=== PATIENT | female | born 1935 | race Caucasian/White ===

== ENCOUNTER 2020-07-14 15:23 | Emergency (ER) | payer OTHER ==
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
[2020-07-14 19:05] VITALS: TEMP 98.9
[2020-07-14 19:07] VITALS: BP 140/70; O2SAT 94
--- OUTSIDE RECORDS SUMMARY | 2020-07-17 08:46 | XMS REPORT | Clinical Summary ---
:1935 Author Organization [facility] Address [address] [place] [address] Care Team Providers Name Role Phone Asked, No Pcp Primary Care Provider Unavailable Allergies No Known Active Allergies Medications Medication Sig Dispensed Refills Start Date End Date Status amLODIPine (NORVASC) 0 05/22/2019 Active 5 mg tablet DEXILANT 60 mg Take 1 capsule by 0 07/12/2019 Active capsule mouth daily. levothyroxine 0 05/16/2019 Activ e (SYNTHROID) 100 mcg tablet losartan-hydrochlorot Take 1 tablet by 0 05/22/2019 Active hiazide (HYZAAR) mouth daily. 100-25 mg per tablet meloxicam (MOBIC) 7.5 0 05/22/2019 Active mg tablet metoprolol tartrate 0 04/18/2019 Active (LOPRESSOR) 50 mg tablet TRAVATAN Z 0.004 % INT 1 GTT IN OU HS 3 07/03/2019 Active cholecalciferol, Take 2,000 Units 0 Active vitamin D3, (VITAMIN by mouth daily. D3) 2,000 unit capsule capsule gabapentin 1 cap PO qHS x 1 90 capsule 5 07/17/2019 Active (NEURONTIN) 100 mg week, then 1 cap capsule PO BID x 1 week, then 1 cap PO TID thereafter Active Problems Problem Noted Date Lumbar disc disease 07/17/2019 Lumbosacral root lesion Encounters Date Type Specialty Care Team Description 08/29/2019 Telephone Neurology Katya Catherine MA 08/02/2019 Office Visit Neurology Logan Garnica Lumbar disc disease (Primary Dx) 08/01/2019 Telephone Neurology Katya Catherine MA 07/17/2019 Hospital Encounter Radiology Logan Garnica Lumbar disc disease 07/17/2019 Office Visit Neurology Logan Garnica Lumbar disc disease (Primary Dx) after 07/16/2019 Medical History Medical History Date Comments Hypertension Social History Tobacco Use Types Packs/Day Years Used Date Never Smoker Smokeless Tobacco: Never Used Alcohol Use Drinks/Week oz/Week Comments Yes Sex Assigned at Date Recorded Not on file Last Filed Vital Signs Vital Sign Reading Time Taken Comments Blood Pressure 150/77 08/02/2019 3:53 PM CDT Pulse 56 08/02/2019 3:53 PM CDT Temperature - - Respiratory Rate - - Oxygen Saturation - - Inhaled Oxygen Concentration - - Weight 77.1 kg (170 lb) 08/02/2019 3:53 PM CDT Height 172.7 cm (5' 8") 08/02/2019 3:53 PM CDT Body Mass Index 25.85 08/02/2019 3:53 PM CDT Plan of Treatment Health Maintenance Due Date Last Done Comments SHINGLES VACCINES (#1) 1985 65+ PNEUMOCOCCAL VACCINE (1 of 1 - PPSV23) 2000 INFLUENZA VACCINE 05/10/2020 Procedures Procedure Name Priority Date/Time Associated Diagnosis Comme nts EMG Routine 07/26/2019 3:12 PM Lumbar disc disease R esults for this CDT procedure are i n the results section. MRI LUMBAR SPINE WO Routine 07/17/2019 7:07 PM Lumbar disc di sease Results for this CONTRAST CDT procedure are i n the results section. after 07/16/2019 Results EMG general request (07/26/2019 3:12 PM CDT) Narrative Performed At This result has an attachment that is no t available. Electromyogram and NCS Report [facility] [address] [place] [address]. [place] [address] Patient: Jane Wells Physician: Logan Garnica MD Age: 84 Test Date: 07/26/19 Sex: Female Height: 67 inches Weight: 170 lbs Ref. M.D.: Logan Garnica MD Date 1935 History/Comments: Temp: LLE:29.6 RLE:29.2 Motor Nerve Study Left Peroneal Nerve Rec Site: EDB Lat (ms) Dur (ms) Amp (mV) Area (mVms) Dist (mm) C.V. (m/s) Stim Site Ankle 6.9 5.7 1.6 4.9 70 Fib.Head 15.1 6.3 1.2 4.1 335 41.0 Motor Nerve Study Right Peroneal Nerve Rec Site: EDB Lat (ms) Dur (ms) Amp (mV) Area (mVms) Dist (mm) C.V. (m/s) Stim Site Ankle 5.8 7.3 3.1 10.2 70 Fib.Head 15.0 5.1 2.6 6.8 305 33.0 Motor Nerve Study Left Tibial Nerve Rec Site: AH Lat (ms) Dur (ms) Amp (mV) Area (mVms) Dist (mm) C.V. (m/s) Stim Site Ankle 4.9 7.5 3.8 13.7 90 Pop.Fos. 13.7 9.2 3.2 11.7 350 40.0 Motor Nerve Study Right Tibial Nerve Rec Site: AH Lat (ms) Dur (ms) Amp (mV) Area (mVms) Dist (mm) C.V. (m/s) Stim Site Ankle 4.9 7.7 1.6 5.3 90 Pop.Fos. 14.3 9.2 1.6 7.3 380 40.4 Sensory Nerve Study Left Sural Nerve Rec Site: Ankle Pk Lat (ms) Amp (uV) Stim Site mid calf NR Sensory Nerve Study Right Sural Nerve Rec Site: Ankle Pk Lat (ms) Amp (uV) Stim Site mid calf NR Sensory Nerve Study Left Superperon Nerve Rec Site: Ankle Pk Lat (ms) Amp (uV) Stim Site Lower leg NR Sensory Nerve Study Right [place]on Nerve Rec Site: Ankle Pk Lat (ms) Amp (uV) Stim Site Lower leg 4.5 6.0 F-Wave Study Left Peroneal Nerve Rec Site: EDB Latency Stim Site: Ankle ms F wave 49.00 F-Wave Study Right Peroneal Nerve Rec Site: EDB Latency Stim Site: Ankle ms F wave 57.50 F-Wave Study Left Tibial Nerve Rec Site: AH Latency Stim Site: Ankle ms F wave 56.50 F-Wave Study Right Tibial Nerve Rec Site: AH Latency Stim Site: Ankle ms F wave 59.83 H Reflex Study Left Tibial Nerve Rec Site: Soleus Latency Stim Site: Pop.Fos. ms H wave 35.67 H Reflex Study Right Tibial Nerve Rec Site: [place] Latency Stim Site: Pop.Fos. ms H wave 36.50 EMG Study Name Ins Act Fibs PSW Fascics Polyph MU Amp MU Dur Config Pattern Recruit L. Vastus Lat. norm none none none inc 1+ inc 1+ nor m poly norm -2 L. Vastus Med. norm none none none inc 1+ inc 1+ nor m poly norm -2 L. Tibialis Ant. Norm inc 2+ none none inc1+ inc 1+ norm poly norm -2 L. Gastroc.Med.H. norm none none none inc 1+ norm norm poly norm -2 L. Abd.Dig.Q. norm none none none none norm norm nor m norm -2 R. Vastus Lat. norm none none none inc 1+ norm norm poly norm -1 R. Vastus Med. norm none none none inc 1+ norm norm poly norm -2 R. Tibialis Ant. norm none none none inc 1+ inc 1+ n orm poly norm -2 R. Gastroc.Med.H. norm none none none inc 1+ norm norm poly norm -2 R. Ext.Dig.Br. 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 MD Jason Spaulding Department of Neurology [facility] [place] [address] Office: [phone] Left Peroneal Nerve Right Peroneal Nerve Left Tibial Nerve Right Tibial Nerve Left Sural Nerve Right Sural Nerve Left Superperon Nerve Right Super[place]on Nerve Left Peroneal Nerve Right Peroneal Nerve Left Tibial Nerve Right Tibial Nerve Left Tibial Nerve Right Tibial Nerve MRI Lumbar Spine Wo Contrast (07/17/2019 7:07 PM CDT) Specimen Narrative Performed At This result has an attachment that is no t available. EXAMINATION: MRI LUMBAR SPINE WO CONTRAST HM RADIANT CLINICAL HISTORY: M51.9 Unspecified th oracic thoracolumbar and lumbosacral intervertebral disc disorder, DJD COMPARISON: None FINDINGS: Noncontrast MRI of the lumbar spine is inter preted. The lowest fully formed disc space is designated L5-S1 . The conus terminates in a normal position and is joellen l in signal intensity. Mild Modic type I endplate edema is noted at L3-4, L4- 5, and L5-S1. L1-2: Prominent disc degenerative change s. Moderate dorsal endplate spurring. Moderate right and mild left facet arthrosis. Ligament of flavum hypertrophy. Moderate canal stenosis with crowding of the c auda equina nerve roots. Moderate right foraminal stenosis with potential contact on the exiting right L 1 nerve root. L2-3: Ankylosis. Mild right foraminal narrowing. L3-4: Moderate disc degenerative changes . Mild dorsal endplate spurring. Moderate disc bulge. Moderate bilateral facet arthrosis. Right ligamentum flavum hypertrophy. Prominent right lateral recess sten osis with contact on the traversing right L4 nerve root. Moderate central zone canal stenos is. [id number] bilateral foraminal stenosis. L4-5: Moderate disc degenerative changes . Moderate disc bulge. Superimposed small right subarticular/foraminal zone disc extrusion with slight superior migration. Prominent bilateral facet arthrosis. Li gament of flavum hypertrophy. Severe canal stenosis with constriction of the cauda equina ne rve roots. Moderate to severe left foraminal stenosis with contact of exiting left L4 nerve root. Moderate right foraminal stenosis with potential contact on the exiting right L4 nerve root. L5-S1: Mild disc degenerative changes. S mall central zone disc protrusion. Mild disc bulge. Prominent left and mild right facet arthrosis. Moderate left lateral recess stenosis with contact on the trave rsing left S1 nerve root. Moderate left foraminal stenosis with potential contact on the exiting left L5 nerve root. There is deconditioning of the posterior paraspinous m usculature. IMPRESSION: Moderate to prominent lumbar spondylosis. Multifactorial severe canal stenosis at L4-5. Prominent right lateral recess stenosis at L3-4 with contact on the traversing right L4 nerve root. Moderate left lateral recess stenosis on the left at L4-5 with contact on the traversing left S1 nerve root. Moderate to severe left foraminal stenos is at L4-5 with contact on the exiting left L4 nerve root. Additional areas of foraminal narrowing as described above. [facility]-[id number] Procedure Note Hm Interface, Radiology Results - 07/17/2019 7:44 PM CDT EXAMINATION: MRI LUMBAR SPINE WO CONTRAST CLINICAL HISTORY: M51.9 Unspecified tho racic thoracolumbar and lumbosacral intervertebral disc disorder, DJD COMPARISON: None FINDINGS: Noncontrast MRI of the lumbar spine is interpreted. The lowest fully formed disc space is de signated L5-S1. The conus terminates in a normal positio n and is normal in signal intensity. Mild Modic type I endplate edema is note d at L3-4, L4-5, and L5-S1. L1-2: Prominent disc degenerative change s. Moderate dorsal endplate spurring. Moderate right and mild left facet arthrosis. Ligament of flavum hypertrophy. Moderate canal stenosis with crowding of the cauda equina nerve roots. Moderate right foraminal stenosis with potential contact on the e xiting right L1 nerve root. L2-3: Ankylosis. Mild right foraminal na rrowing. L3-4: Moderate disc degenerative changes . Mild dorsal endplate spurring. Moderate disc bulge. Moderate bilateral facet arthrosis. Right ligamentum flavum hypertrophy. Prominent right lateral recess stenosis with contact on the traversing right L4 nerve root. Moderate central zone canal stenos is. [id number] bilateral foraminal stenosis. L4-5: Moderate disc degenerative changes . Moderate disc bulge. Superimposed small right subarticular/foraminal zone disc extrusion with slight superior migration. Prominent bilateral facet arthrosis. Ligament of flavum hypertrophy. Severe canal sten osis with constriction of the cauda equina ne rve roots. Moderate to severe left foraminal stenosis with contact of exiting left L4 nerve root. Moderate right foraminal stenosis with potential contact on the exiting right L4 nerve root. L5-S1: Mild disc degenerative changes. S mall central zone disc protrusion. Mild disc bulge. Prominent left and mild right facet arthrosis. Moderate left lateral recess stenosis with contact on the traversing left S1 nerve root. Moderate left foraminal stenosis with potential contact on the e xiting left L5 nerve root. There is deconditioning of the posterior paraspinous musculature. IMPRESSION: Moderate to prominent lumbar spondylosis . Multifactorial severe canal stenosis at L4-5. Prominent right lateral recess stenosis at L3-4 with contact on the traversing right L4 nerve root. Moderate left lateral recess stenosis on the left at L4-5 with contact on the traversing left S1 nerve root. Moderate to severe left foraminal stenos is at L4-5 with contact on the exiting left L4 nerve root. Additional areas of foraminal narrowing as described above. [facility]-[id number] Performing Organization Address City/State/ZIP Code Phon e Number [facility]ISH[facility] [address] [place] [address] after 07/16/2019 Insurance Payer Benefit Plan / Subscriber ID Effective Dates Phone Addre ss Type Group MEDICARE MEDICARE PART A [id number] 2000-[place] , [place] Medicare AND B nt [employer] [id number] 2018-[employer] michelle [employer] Advance Directives For more information, please contact: [phone] Type Date Recorded Patient Student Services Coordinator Explanati on Advance Directives, Living Will and Medical Power of Purchasing Administrative Assistant
== END 2020-07-14 17:42 | disposition home or self-care (01) ==
LOC: ER 15:23
DX: S43.401A Unspecified sprain of right shoulder joint, initial encounter (principal); V49.40XA Driver injured in collision with unspecified motor vehicles in traffic accident, initial encounter; I10 Essential (primary) hypertension
CPT/HCPCS: 70450; 71045; 72125; 99283

== ENCOUNTER 2023-03-18 17:30 | Observation (INO) | payer OTHER ==
--- OUTSIDE RECORDS SUMMARY | 2023-03-18 17:40 | XMS REPORT | Continuity of Care Document ---
:1935 Author Organization [facility] t Address [address] [place] [address] [place] [id number] Care Team Providers Name Role Phone RODERICK ESTRADA Primary Care Physician Unavailable RAFAEL MONTES Attending Clinician Unavailable EMILY WATSON Attending Clinician Unavailable EMILY WATSON Attending Clinician Unavailable Alejandro Saravia MD Attending Clinician ALEJANDRO SARAVIA Attending Clinician Unavailable Doctor Unassigned, [place] Attending Clinician Unavailable ALEJANDRO SARAVIA Admitting Clinician Unavailable Payers Payer Name Policy Type Policy Number Effective Date Expiration Date [facility] [id number] 2022 CLASSIC NO PREMIUM 00:00:00 HMO Problems Condition Condition Condition Status Onset Resolution Last Treating Co mments Source Name Details Category Date Date Treatment Clinician Date 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 0-08 st disease disease 00:00: Hospita 00 l Lumbosacra Lumbosacra Disease Active M ethodi l root l root st lesion lesion Hospita l Allergies, Adverse Reactions, Alerts Allergy Allergy Status Severity Reaction(s) Onset Inactive Treating Comm ents Source Name Type Date Date Clinician NO KNOWN Drug Active Univers ALLERGIE Class ity of [facility] [place] Social History Social Habit Start Date Stop Date Quantity Comments Source [facility] Exposure to 2022-12-06 2022-12-16 Not sure [facility]-CoV-2 (event) 00:00:00 10:37:00 [facility] [place] Tobacco use and 2022-11-18 2022-11-18 Smokeless Universit y of exposure 00:00:00 00:00:00 tobacco non-user [facility] dical Branch Alcohol intake 2019-08-02 2019-08-02 Current drinker [facility] 00:00:00 00:00:00 of alcohol Hospital (finding) History of Social 2019-07-17 2019-07-[address] function 00:00:00 00:00:00 Hospital Sex Assigned At [birth year] Jew 00:00:00 00:00:00 Hospital Smoking Status Start Date Stop Date Source Never smoked tobacco [facility] Medications Ordered Filled Start Stop Current Ordering Indication Dosage Frequency Signature Comments Components Source Medication Medication Date Date Medication? Clinician (SIG) Name Name famotidine Yes 40mg Take 40 mg U nivers 40 mg 2-09 by mouth ity of tablet 13:47: in the [place] [address] morning. Medical Branch famotidine Yes 40mg Take 40 mg U nivers 40 mg 2-09 by mouth ity of tablet 13:47: in the [place] [address] morning. Medical Branch famotidine Yes 40mg Take 40 mg U nivers 40 mg 2-09 by mouth ity of tablet 13:47: in the [place] [address] morning. Medical Branch famotidine Yes 40mg Take 40 mg U nivers 40 mg 2-09 by mouth ity of tablet 13:47: in the [place] [address] morning. Medical Branch famotidine Yes 40mg Take 40 mg U nivers 40 mg 2-09 by mouth ity of tablet 13:47: in the [place] [address] morning. Medical Branch metoprolol Yes metoprolol U nivers tartrate 50 2-09 tartrate ity of mg tablet 13:46: 50 mg [place] 16 tablet Medical Branch losartan-hy Yes losartan Un sukhi drochloroth 2-09 100 ity of iazide 13:46: mg-hydroch [place] 100-12.5 mg 16 lorothiazi Me dical per tablet de 12.5 mg Bra nch tablet levothyroxi Yes Synthroid U nivers ne 2-09 112 mcg ity of (SYNTHROID) 13:46[place] 112 [place]cg 16 Medical tablet Branch travoprost Yes travoprost U nivers 0.004 % 2-09 0.004 % ity of ophthalmic 13:46: [place] solution 16 Medical [place] metoprolol Yes metoprolol U nivers tartrate 50 2-09 tartrate ity of mg tablet 13:46: 50 mg [place] 16 tablet [facility] Yes losartan Un sukhi drochloroth 2-09 100 ity of iazide 13:46: mg-hydroch [place] 100-12.5 mg 16 lorothiazi Me dical per tablet de 12.5 mg Bra nch tablet levothyroxi Yes Synthroid U nivers ne 2- 112 mcg ity of (SYNTHROID) 13:46: [place] 112 mcg 16 Medical [facility] travoprost Yes travoprost U nivers 0.004 % 2-09 0.004 % ity of ophthalmic 13:46: [place] drops [place] 16 [facility] metoprolol Yes metoprolol U nivers tartrate 50 2-09 tartrate ity of mg tablet 13:46: 50 mg [place] 16 tablet [facility] Yes losartan Un sukhi drochloroth 2- 100 ity of iazide 13:46: mg-hydroch [place] 100-12.5 mg 16 lorothiazi Me dical per tablet de 12.5 mg Bra nch tablet levothyroxi Yes Synthroid U nivers ne - 112 mcg ity of (SYNTHROID) 13:46: [place] 112 mcg 16 Medical tablet [place] travoprost Yes travoprost U nivers 0.004 % 2-09 0.004 % ity of ophthalmic 13:46: [place] 16 [place] metoprolol Yes metoprolol U nivers tartrate 50 2-09 tartrate ity of mg tablet 13:46: 50 mg [place] 16 tablet [facility] losartan Un sukhi drochloroth 2-09 100 ity of iazide 13:46: mg-hydroch [place] 100-12.5 mg 16 lorothiazi Me dical per tablet de 12.5 mg Bra nch tablet levothyroxi Yes Synthroid U nivers ne 2-09 112 mcg ity of (SYNTHROID) 13:46: [place] 112 mcg 16 Medical tablet Branch travoprost Yes travoprost U nivers 0.004 % 2-09 0.004 % ity of ophthalmic 13:46: [place] drops [place] solution 16 [facility] metoprolol Yes metoprolol U nivers tartrate 50 2-09 tartrate ity of mg tablet 13:46: 50 mg [place] 16 tablet Medical Branch losartan-hy Yes losartan Un sukhi drochloroth 2 100 ity of iazide 13:46: mg-hydroch [place] 100-12.5 mg 16 lorothiazi Me dical per tablet de 12.5 mg Bra nch tablet levothyroxi Yes Synthroid U nivers ne 2-09 112 mcg ity of (SYNTHROID) 13:46: [place] 112 mcg 16 Medical tablet Branch travoprost Yes travoprost U nivers 0.004 % 2-09 0.004 % ity of ophthalmic 13:46: eye drops [place] solution 16 [facility] amLODIPine Yes 10mg Take 10 mg U nivers 10 mg 1-24 by mouth ity of tablet 00:00: every [place] 00 morning. Medical Branch SERTraline 0 Yes 50mg Take 50 mg U nivers 50 mg 1-24 by mouth ity of tablet 00:00: every [place] 00 morning. Medical Branch amLODIPine 0 Yes 10mg Take 10 mg U nivers 10 mg 1-24 by mouth ity of tablet 00:00: every [place] 00 morning. Medical Branch SERTraline 2022-0 Yes 50mg Take 50 mg U nivers 50 mg 1-24 by mouth ity of tablet 00:00: every [place] 00 morning. Medical Branch amLODIPine 0 Yes 10mg Take 10 mg U nivers 10 mg 1-24 by mouth ity of tablet 00:00: every [place] 00 morning. Medical Branch SERTraline 0 Yes 50mg Take 50 mg U nivers 50 mg 1-24 by mouth ity of tablet 00:00: every [place] 00 morning. Medical Branch amLODIPine 2022-0 Yes 10mg Take 10 mg U nivers 10 mg 1-24 by mouth ity of tablet 00:00: every [place] 00 morning. Medical Branch SERTraline Yes 50mg Take 50 mg U nivers 50 mg 1-24 by mouth ity of tablet 00:00: every [place] 00 morning. Medical Branch amLODIPine Yes 10mg Take 10 mg U nivers 10 mg 1-24 by mouth ity of tablet 00:00: every [place] 00 morning. Medical Branch SERTraline 0 Yes 50mg Take 50 mg U nivers 50 mg 1-24 by mouth ity of tablet 00:00: every [place] 00 morning. Medical Branch cholecalcif 2018-10 Yes 2000U QD Take 2,000 Methodi brandon, 0-[address] vitamin D3, 15:42: mouth Hospi ta (VITAMIN 32 daily. l D3) 2,000 unit capsule capsule cholecalcif 2018-10 Yes 2000U QD Take 2,000 Methodi brandon, 0-[address] vitamin D3, 15:42: mouth Hospi ta (VITAMIN 32 daily. l D3) 2,000 unit capsule capsule cholecalcif 2018-10 Yes 2000U QD Take 2,000 Methodi brandon, 0-[address] vitamin D3, 15:42: mouth Hospi ta (VITAMIN 32 daily. l D3) 2,000 unit capsule capsule cholecalcif 2018-10 Yes 2000U QD Take 2,000 Methodi brandon, 0-[address] vitamin D3, 15:42: mouth Hospi ta (VITAMIN 32 daily. l D3) 2,000 unit capsule capsule cholecalcif 2018-10 Yes 2000U QD Take 2,000 Methodi brandon, 0-[address] vitamin D3, 15:42: mouth Hospi ta (VITAMIN 32 daily. l D3) 2,000 unit capsule capsule cholecalcif 2018-10 Yes 2000U QD Take 2,000 Methodi brandon, 0-[address] vitamin D3, 15:42: mouth Hospi ta (VITAMIN 32 daily. l D3) 2,000 unit capsule capsule gabapentin 2018-10 Yes 1 cap PO Met hodi (NEURONTIN) 0-[address] 100 mg 00:00: week, then Hospi ta capsule 00 1 cap PO l BID x 1 week, then 1 cap PO TID thereafter gabapentin 2018-10 Yes 1 cap PO Met hodi (NEURONTIN) 0-[address] 100 mg 00:00: week, then Hospi ta capsule 00 1 cap PO l BID x 1 week, then 1 cap PO TID thereafter gabapentin 2018-10 Yes 1 cap PO Met hodi (NEURONTIN) 0-[address] 100 mg 00:00: week, then Hospi ta capsule 00 1 cap PO l BID x 1 week, then 1 cap PO TID thereafter gabapentin 2018-10 Yes 1 cap PO Met hodi (NEURONTIN) 0-[address] 100 mg 00:00: week, then Hospi ta capsule 00 1 cap PO l BID x 1 week, then 1 cap PO TID thereafter gabapentin 2018-10 Yes 1 cap PO Met hodi (NEURONTIN) 0-[address] 100 mg 00:00: week, then Hospi ta capsule 00 1 cap PO l BID x 1 week, then 1 cap PO TID thereafter gabapentin 2018-10 Yes 1 cap PO Met hodi (NEURONTIN) 0-[address] 100 mg 00:00: week, then Hospi ta capsule 00 1 cap PO l BID x 1 week, then 1 cap PO TID thereafter DEXILANT 60 2018-10 Yes 1{capsu QD Take 1 M ethodi mg capsule 0-03 le} capsule by st 00:00: mouth Hospita 00 daily. l DEXILANT 60 2018-10 Yes 1{capsu QD Take 1 M ethodi mg capsule 0-03 le} capsule by st 00:00: mouth Hospita 00 daily. l DEXILANT 60 2018-10 Yes 1{capsu QD Take 1 M ethodi mg capsule 0-03 le} capsule by st 00:00: mouth Hospita 00 daily. l DEXILANT 60 2018-10 Yes 1{capsu QD Take 1 M ethodi mg capsule 0-03 le} capsule by st 00:00: mouth Hospita 00 daily. l DEXILANT 60 2018-10 Yes 1{capsu QD Take 1 M ethodi mg capsule 0-03 le} capsule by st 00:00: mouth Hospita 00 daily. l DEXILANT 60 2018-10 Yes 1{capsu QD Take 1 M ethodi mg capsule 0-03 le} capsule by st 00:00: mouth Hospita 00 daily. l GABBY Valentin 2018- Yes INT 1 GTT Me thodi 0.004 % 9-[address] 00:00: Hospita 00 l TRAVATAN Z 2019-0 Yes INT 1 GTT Me thodi 0.004 % 9-[address] 00:00: Hospita 00 l TRAVATAN Z 2019-0 Yes INT 1 GTT Me thodi 0.004 % 9-[address] 00:00: Hospita 00 l TRAVATAN Z 2019-0 Yes INT 1 GTT Me thodi 0.004 % 9-[address] 00:00: Hospita 00 l TRAVATAN Z 2019-0 Yes INT 1 GTT Me thodi 0.004 % 9-[address] 00:00: Hospita 00 l TRAVATAN Z 2019-0 Yes INT 1 GTT Me thodi 0.004 % 9-[address] 00:00: Hospita 00 l amLODIPine 2019-0 Yes Methodi (NORVASC) 5 8-13 st mg tablet 00:00: Hospita 00 l losartan-hy 2019-0 Yes 1{tbl} QD Take 1 Me thodi drochloroth 8-[address] iazide 00:00: mouth Hospita (HYZAAR) 00 daily. l 100-25 mg per tablet meloxicam 2018-0 Yes Methodi (MOBIC) 7.5 8-13 st mg tablet 00:00: Hospita 00 l losartan-hy 2019-0 Yes 1{tbl} QD Take 1 Me thodi drochloroth 8-[address] iazide 00:00: mouth Hospita (HYZAAR) 00 daily. l 100-25 mg per tablet meloxicam 2019-0 Yes Methodi (MOBIC) 7.5 8-13 st mg tablet 00:00: Hospita 00 l amLODIPine 2019-0 Yes Methodi (NORVASC) 5 8-13 st mg tablet 00:00: Hospita 00 l losartan-hy 2019-0 Yes 1{tbl} QD Take 1 Me thodi drochloroth 8-[address] iazide 00:00: mouth Hospita (HYZAAR) 00 daily. l 100-25 mg per tablet meloxicam 2019-0 Yes Methodi (MOBIC) 7.5 8-13 st mg tablet 00:00: Hospita 00 l amLODIPine 2019-0 Yes Methodi (NORVASC) 5 8-13 st mg tablet 00:00: Hospita 00 l losartan-hy 2019-0 Yes 1{tbl} QD Take 1 Me thodi drochloroth 8-[address] iazide 00:00: mouth Hospita (HYZAAR) 00 daily. l 100-25 mg per tablet meloxicam 2019-0 Yes Methodi (MOBIC) 7.5 8-13 st mg tablet 00:00: Hospita 00 l amLODIPine 2019-0 Yes Methodi (NORVASC) 5 8-13 st mg tablet 00:00: Hospita 00 l losartan-hy 2019-0 Yes 1{tbl} QD Take 1 Me thodi drochloroth 8-[address] iazide 00:00: mouth Hospita (HYZAAR) 00 daily. l 100-25 mg per tablet meloxicam 2019-0 Yes Methodi (MOBIC) 7.5 8-13 st mg tablet 00:00: Hospita 00 l amLODIPine 2019-0 Yes Methodi (NORVASC) 5 8-13 st mg tablet 00:00: Hospita 00 l losartan-hy 2019-0 Yes 1{tbl} QD Take 1 Me thodi drochloroth 8-[address] iazide 00:00: mouth Hospita (HYZAAR) 00 daily. l 100-25 mg per tablet meloxicam 2019-0 Yes Methodi (MOBIC) 7.5 8-13 st mg tablet 00:00: Hospita 00 l amLODIPine 2019-0 Yes Methodi (NORVASC) 5 8-13 st mg tablet 00:00: Hospita 00 l levothyroxi 2019-0 Yes Method i ne 05-16 st (SYNTHROID) 00:00: Hospit a 100 mcg 00 l tablet levothyroxi 2019-0 Yes Method i ne 05-16 st (SYNTHROID) 00:00: Hospit a 100 mcg 00 l tablet levothyroxi 2019-0 Yes Method i ne 05-16 st (SYNTHROID) 00:00: Hospit a 100 mcg 00 l tablet levothyroxi 2019-0 Yes Method i ne 05-16 st (SYNTHROID) 00:00: Hospit a 100 mcg 00 l tablet levothyroxi 2019-0 Yes Method i ne 05-16 (SYNTHROID) 00:00: Hospit a 100 mcg 00 l tablet levothyroxi 2019-0 Yes Method i ne 8-07 st (SYNTHROID) 00:00: Hospit a 100 mcg 00 l tablet metoprolol 2019-0 Yes Methodi tartrate 7-10 st (LOPRESSOR) 00:00: Hospit a 50 mg 00 l tablet metoprolol 2019-0 Yes Methodi tartrate 7-10 st (LOPRESSOR) 00:00: Hospit a 50 mg 00 l tablet metoprolol 2019-0 Yes Methodi tartrate 7-10 st (LOPRESSOR) 00:00: Hospit a 50 mg 00 l tablet metoprolol 2019-0 Yes Methodi tartrate 7-10 st (LOPRESSOR) 00:00: Hospit a 50 mg 00 l tablet metoprolol 2019-0 Yes Methodi tartrate 7-10 st (LOPRESSOR) 00:00: Hospit a 50 mg 00 l tablet metoprolol 2019-0 Yes Methodi tartrate 7-10 st (LOPRESSOR) 00:00: Hospit a 50 mg 00 l tablet Vital Signs Vital Name Observation Time Observation Value Comments Source Systolic blood 2022-11-18 19:57:00 123 mm[Hg] Univer sity [facility] Diastolic blood 2022-11-18 19:57:00 90 mm[Hg] [facility] 2022-11-18 19:57:00 99 /min [facility] Body temperature 2022-11-18 19:54:00 37.22 [facility] height 2022-11-18 19:54:00 175.3 cm [facility] Body weight 2022-11-18 19:54:00 70.761 kg [facility] BMI 2022-11-18 19:54:00 23.04 kg/m2 [facility] Oxygen saturation in 2022-11-18 19:54:00 93 /min [facility] blood by [facility] Pulse oximetry Branch Procedures Procedure Date / Time Performed Performing Clinician Byron VILLANUEVA PATIENT 2022-11-18 20:14:18 Doctor Unassigned, No Univer [facility] FINANCIAL POLICY Name Medical [place] Plan of Care Planned Activity Planned Date Details Comments Source Future Scheduled 2023-03-16 COVID-19 VACCINE (#1) [facility] Test 13:27:24 [code = COVID-19 VACCINE (#1)] Future Scheduled 2023-03-16 SHINGLES VACCINES (1 [facility] 13:27:24 of 2) [code = SHINGLES VACCINES (1 of 2)] Future Scheduled 2023-03-16 65+ [facility]UMOCOCCAL [facility] Test 13:27:24 VACCINE (1 - PCV) [code = 65+ PNEUMOCOCCAL VACCINE (1 - PCV)] Future Scheduled 2023-03-16 INFLUENZA VACCINE Method ist Hospital Test 13:27:24 [code = INFLUENZA VACCINE] Future Scheduled 2023-03-16 COVID[facility]19 [facility] Test 13:27:24 [code = COVID-19 VACCINE (#1)] Future Scheduled 2023-03-16 SHINGLES VACCINES (1 [facility] Test 13:27:24 of 2) [code = SHINGLES VACCINES (1 of 2)] Future Scheduled 2023-03-16 65+ PNEUMOCOCCAL [facility] Hospital Test 13:27:24 VACCINE (1 - PCV) [code = 65+ PNEUMOCOCCAL VACCINE (1 - PCV)] Future Scheduled 2023-03-16 INFLUENZA VACCINE Method ist Hospital Test 13:27:24 [code = INFLUENZA VACCINE] Future Scheduled 2023-03-16 COVID-19 VACCINE (#1) [facility] Test 13:27:24 [code = COVID-19 VACCINE (#1)] Future Scheduled 2023-03-16 SHINGLES VACCINES (1 [facility] Test 13:27:24 of 2) [code = SHINGLES VACCINES (1 of 2)] Future Scheduled 2023-03-16 65+ P[facility]UMOCOCCAL [facility] Test 13:27:24 VACCINE (1 - PCV) [code = 65+ PNEUMOCOCCAL VACCINE (1 - PCV)] Future Scheduled 2023-03-16 INFLUENZA VACCINE Method ist Hospital Test 13:27:24 [code = INFLUENZA VACCINE] Future Scheduled 2023-01-20 COVID-19 VACCINE (#1) [facility] Test 14:25:48 [code = COVID-19 VACCINE (#1)] Future Scheduled 2023-01-20 SHINGLES VACCINES (1 [facility] Test 14:25:48 of 2) [code = SHINGLES VACCINES (1 of 2)] Future Scheduled 2023-01-20 65+ PNEUMOCOCCAL [facility] Hospital Test 14:25:48 VACCINE (1 - PCV) [code = 65+ PNEUMOCOCCAL VACCINE (1 - PCV)] Future Scheduled 2023-01-20 INFLUENZA VACCINE Method [facility] Test 14:25:48 [code = INFLUENZA VACCINE] Future Scheduled 2023-01-13 COVID-19 VACCINE (#1) [facility] Test 02:06:31 [code = COVID-19 VACCINE (#1)] Future Scheduled 2023-01-13 SHINGLES VACCINES (1 Met [facility] Test 02:06:31 of 2) [code = SHINGLES VACCINES (1 of 2)] Future Scheduled 2023-01-13 65+ PNEUMOCOCCAL Methodi Hospital Test 02:06:31 VACCINE (1 - PCV) [code = 65+ PNEUMOCOCCAL VACCINE (1 - PCV)] Future Scheduled 2023-01-13 INFLUENZA VACCINE Method [facility] Test 02:06:31 [code = INFLUENZA VACCINE] Future Scheduled 2022-09-22 COVID-19 VACCINE (#1) [facility] Test 22:47:08 [code = COVID-19 VACCINE (#1)] Future Scheduled 2022-09-22 SHINGLES VACCINES (1 Met [facility] Test 22:47:08 of 2) [code = SHINGLES VACCINES (1 of 2)] Future Scheduled 2022-09-22 65+ [facility]AL [facility] 22:47:08 VACCINE (1 - PCV) [code = 65+ PNEUMOCOCCAL VACCINE (1 - PCV)] Future Scheduled 2022-09-22 INFLUENZA VACCINE Method [facility] Test 22:47:08 [code = INFLUENZA VACCINE] Encounters Start End Encounter Admission Attending Care Care Encounter Source Date/Time Date/Time Type Type Clinicians Facility Department ID 2023-03-16 2023-03-16 Outpatient BRIT PEREA [id number] Nam 13:27:21 13:27:21 [id number] F Maurilio 2023-03-14 2023-03-14 Outpatient R EMILY WATSON [facility] [id number] Univers 12:00:00 12:00:00 EMILY WATSON [facility] 2023-01-20 2023-01-20 Outpatient BRIT PEREA [id number] Nam 14:25:45 14:25:45 [id number] F Maurilio 2023-01-19 2023-01-19 Outpatient [facility] [id number] Nam 16:36:28 16:36:28 [id number] F Maurilio 2022-12-17 2022-12-17 Telephone [facility] [id number] Univers 00:00:00 00:00:00 Alejandro CHENG [id number] [place]y [id number] [id number] [place] dical NAL [address] [place] [address] 2022-12-16 2022-12-16 Outpatient R [facility] [id number] Univers 10:38:07 23:59:00 ALEJANDRO marrufo o [facility] 2022-12-16 2022-12-16 Outpatient R [facility] [id number] Univers 11:00:00 11:00:00 ALEJANDRO marrufo o [facility] 2022-12-09 2022-12-09 [facility] [id number] Univers 00:00:00 00:00:00 Casjose PROSPER [id number] [place] [facility] [id number] [id number] [address] 2022-11-18 2022-11-18 Outpatient R [facility] [id number] Univers 13:40:00 16:17:28 ALEJANDRO marrufo o [facility] 2022-11-18 2022-11-18 Office [facility] [id number] Univers 13:40:00 14:00:00 Visit Casjose ARZOLAVASQUEZ [id number] [id number] [id number] [place] dical NAL [address] [place] [address] 2022-11-18 2022-11-18 Orders Doctor FRANCO [id number] Univers 00:00:00 00:00:00 Only Unassigned, CONCHITA [id number] ity of [place] [facility] [id number] Lauro as [id number] [address] 2022-11-16 2022-11-16 Outpatient [facility] [id number] Nam 13:20:17 13:20:17 [id number] Juan Thorpe 2022-11-02 2022-11-02 Outpatient [facility] [id number] Nam 10:35:49 10:35:49 [id number] Juan Thorpe Results Test Description Test Time Test Comments Results Result Comments Source TSH + FREE T4 PROFILE 2023-01-21 06:53:16 Test Item Value Reference Range Interpretation Comme nts TSH, THIRD GENERATION (test 0.979 UIU/ML 0.400-4.100 code = 2821) FREE T4 (THYROXINE) (test 1.33 NG/DL 0.80-1.90 * CPL has important code = 2823) pathology staff changes effective 12/08. New pathology staff will provide uninterrupted, excellent patient care an d clinical consultation. S ee URL: [email or web address] UNLESS OTHERW ISE INDICATED, ALL TESTING PER FORMED AT CLINICAL PATHOL [employer], [facility]. [address] [place] [address] LABORATORY DIRE CTOR: Coby IBARRA NIYA NUMBER [id number] [facility]. [id number] THYROID II PROFILE (TU,T4,FTI,TSH)2022-11-17 05:51:41 Test Item Value Reference Range Interpretation Comments T-UPTAKE (test code = 30.2 % 24.3-39.0 2817) THYROX. BIND. CAPAC. 1.1 0.8-1.3 (test code = 16530) T4 (THYROXINE) (test 6.9 UG/DL 4.5-10.5 code = 2819) CORRECTED T4 (FTI) 6.3 UG/DL 4.2-11.6 (test code = 2820) TSH, THIRD GENERATION 20.800 UIU/ML 0.400-4.100 H CPL has (test code = 2821) important pathology staff changes effective 12/08/2022. New pathology staff will provide uninterrupted, excellent patie nt care and clinic al consultation. S ee URL: [email or web address]. UN LESS OTHERWISE INDICATED, ALL TESTING PERFORM ED AT [facility], [place]. [address] [place] [address] CLIA : [id number], CAP : [id number] VITAMIN [id number] 11:55:32 Test Item Value Reference Range Interpretation Comments VITAMIN B-6 31 nmol/L 20-125 This test was d eveloped and its (test code = performance 4956) characteristics determined by [facility] ([facility]). It has n ot beencleared or approved by the U.S. Food and Drug Admini stration (FDA).The FDA h as determined that such clear ance or approval is notnecessary . This test is used for clinic al purposes and should not teresita garded as investigational or for research. [facility] i s qualified toperform high complexity testing under t he Clinical LaboratoryImpro vement Amendments (CLI A). TESTING PERFORMED AT [facility] . [address], [address], [address] [place], [place] [address] CLIA NO: [id number] UNLE SS OTHERWISE INDICATED, ALL TESTING PERFORMED [facility], [place]. [address] [place] [address] 4 PHOTOGRAPHY TEACHER: LUIS ENRIQUE TIAN M.D. CLIA JULIAN Pierce [id number] CAP ACCREDITATION N O. [id number] HEMOGLOBIN [id number] 08:45:59 Test Item Value Reference Range Interpretation Comments HEMOGLOBIN A1c (test code = 26140) 5.6 % 4.2-5.6 CBC W/AUTO DIFF WITH [id number] 08:28:26 Test Item Value Reference Range Interpretation Comments WBC (test code = 5.5 K/UL 3.5-11.0 1001) RBC (test code = 4.98 M/UL 3.80-5.40 1002) HEMOGLOBIN (test code 15.3 G/DL 11.5-15.5 = 1003) HEMATOCRIT (test code 46.5 % 34.0-45.0 H = 1004) MCV (test code = 93.4 fL 80.0-99.0 1005) MCH (test code = 30.7 PG 25.0-33.0 1006) MCHC (test code = 32.9 G/DL 31.0-36.0 1007) RDW (test code = 13.4 % 11.5-15.0 1038) NEUTROPHILS (test 61.8 % code = 1008) LYMPHOCYTES (test 26.8 % code = 1010) MONOCYTES (test code 8.6 % = 1011) EOSINOPHILS (test 1.7 % code = 1012) BASOPHILS (test code 0.7 % = 1013) IMMATURE GRANULOCYTES 0.4 % (test code = 1036) NUCLEATED RBCS (test 0.0 /100 WBC'S See_Comment [Aut omated code = 1065) message] The sy stem which generated this result transmitted reference range : 0.0. The refere nce range was not u sed to interpret th is result as normal/abnormal . PLATELET COUNT (test 192 K/UL 130-400 code = 1015) ABSOLUTE NEUTROPHILS 3.37 K/UL 1.50-7.50 (test code = 1066) ABSOLUTE LYMPHOCYTES 1.46 K/UL 1.00-4.00 (test code = 1067) ABSOLUTE MONOCYTES 0.47 K/UL 0.20-1.00 (test code = 1068) ABSOLUTE EOSINOPHILS 0.09 K/UL 0.00-0.50 (test code = 1040) ABSOLUTE BASOPHILS 0.04 K/UL 0.00-0.20 (test code = 1069) ABS IMMATURE 0.02 K/UL 0.00-0.10 GRANULOCYTES (test code = 1020) ABS NUCLEATED RBCS 0.00 K/UL 0.00-0.11 (test code = 75511) VITAMIN D, 25 [id number] 06:50:23 Test Item Value Reference Range Interpretation Comments VITAMIN D, 25 31 NG/ML SEE BELOW EFFECTIVE 10/18/2022, [place] (test code PLEASE NOTE NE W METHODOLOGY = 4958) IS [facility] EMILUMINESCENCE BINDING ASSAY. NOTE: 25-HYDROXYVITAM IN D ASSAY INCLUDES 25-HYD ROXYVITAMIN D2 AND D3. I NTERPRETIVE RANGES PED IATRIC (<17 YEARS) . . . . . . . . . . . NG/ML 20-100ADU LT: INSUFFICIENT . . . . . . . . . . . . . . NG/ML <20 SUBOP TIMAL . . . . . . . . . . . . . . . NG/ML 20-29 OPTIMAL . . . . . . . . . . . . . . . . . NG/ML 30-100 TSH, THIRD [id number] 06:18:28 Test Item Value Reference Range Interpretation Comments TSH, THIRD GENERATION (test 48.000 UIU/ML 0.400-4.100 H code = 2821) VITAMIN [id number] 06:18:28 Test Item Value Reference Range Interpretation Comments VITAMIN B-12 (test code = 2840) 332 PG/ML 200-950 COMPREHENSIVE METABOLIC [id number] 03:59:30 Test Item Value Reference Range Interpretation Comments GLUCOSE (test code = 105 MG/DL 70-99 H 2216) BUN (test code = 15 MG/DL 8-23 2207) CREATININE (test 1.01 MG/DL 0.60-1.30 code = 2214) eGFR (2020 CKD-EPI) 54 ML/MIN/1.73 >60 L The N KF-ASN (test code = 70404) Taskforc e recommends use of Cystatin C to confirm eGFR inadults at [facility] k for CKD. [facility]PL offers eGFR with Cystatin C-Creatinineusi ng the 2020 CKD-EP I eGFR_creat-cyst at equation (order code 3057) toincreas e the accuracy of estimated GFR. For more informatio n, contactyour [facility] ount executive or se e announcement [email or web address] CALC BUN/CREAT (test 15 RATIO 6-28 code = 2235) SODIUM (test code = 142 MEQ/L 513-403 0997) POTASSIUM (test code 4.6 MEQ/L 3.5-5.4 = 2227) CHLORIDE (test code 106 MEQ/L 95-107 = 221) CARBON DIOXIDE (test 26 MEQ/L 19-31 code = 2206) CALCIUM (test code = 10.5 MG/DL 8.5-10.5 2208) PROTEIN, TOTAL (test 6.6 G/DL 6.1-8.3 code = 222) ALBUMIN (test code = 4.2 G/DL 3.5-5.2 2200) CALC GLOBULIN (test 2.4 G/DL 1.9-3.7 code = 2240) CALC A/G RATIO (test 1.8 RATIO 1.0-2.6 code = 2234) BILIRUBIN, TOTAL 0.8 MG/DL See_Comment [Automated message] (test code = 220) The syste m which generated this result transmit gilbert reference range : <=1.2. The refe rence range was not u sed to interpret th is result as normal/abnormal . ALKALINE PHOSPHATASE 69 U/L 40-142 (test code = 2203) AST (test code = 12 U/L 9-40 2217) ALT (test code = 9 U/L 5-40 2218) LIPID [id number] 03:59:30 Test Item Value Reference Range Interpretation Comments CHOLESTEROL (test 209 MG/DL <200 H code = 2210) TRIGLYCERIDES (test 74 MG/DL <150 code = 2232) HDL CHOLESTEROL (test 76 MG/DL >39 code = 2220) CALC LDL CHOL (test 116 MG/DL <100 H NOTE: C ALCULATED LDL code = 2237) IS BASED ON ALIA-PALACIO METHOD WHICHINCLUDES ADJUSTABLE TRIGLYCERIDE:VL DL CHOLESTEROL RAT IO.THIS FACTOR VARIES B Y MEASURED TRIGLY CERIDE AND NON-HDLCHOL ESTEROL CONCENTRATIONS WITH INCREASED CALCU LATED LDL SEENIN HIGH ER TRIGLYCERIDE OR LOWER NON-HDL SPECIME NS. FOR MOREINFORMATION , SEE CLIENT ANNOUNCE MENT AT [email or web address] RATIO LDL/HDL 1.53 RATIO <3.22 (test code = 2237) VITAMIN [id number] 09:23:21 Test Item Value Reference Range Interpretation Comments VITAMIN B-12 (test code = 2840) 321 PG/ML 200-950 RENAL FUNCTION [id number] 06:08:32 Test Item Value Reference Range Interpretation Comments GLUCOSE (test code = 2217) 94 MG/DL 70-99 BUN (test code = 220) 24 MG/DL 8-23 H CREATININE (test code = 2214) 0.95 MG/DL 0.60-1.30 eGFR (2020 CKD-EPI) (test code 58 ML/MIN/1.73 >60 L = ) CALC BUN/CREAT (test code = 25 RATIO 6-2234) SODIUM (test code = 223) 145 MEQ/L 133-146 POTASSIUM (test code = 2228) 4.0 MEQ/L 3.5-5.4 CHLORIDE (test code = 2215) 105 MEQ/L 95-107 CARBON DIOXIDE (test code = 27 MEQ/L 2205) CALCIUM (test code = 9) 10.1 MG/DL 8.5-10.5 PHOSPHORUS (test code = 2227) 3.8 MG/DL 2.5-4.5 ALBUMIN (test code = 2201) 4.2 G/DL 3.5-5.2 VITAMIN D, 25 [id number] 06:00:33 Test Item Value Reference Range Interpretation Comments VITAMIN D, 25 OH 21 NG/ML SEE BELOW L NOTE: 25-H YDROXYVITAMIN D (test code = 4958) ASSAY INC LUDES 25-HYDROXYVITAM IN D2 AND D3. METHODOLOGY IS CHEMILUMINESCEN T IMMUNOASSAY. INTERPRETIVE RA NGES PEDIATRIC (<17 YEARS) . . . . . . . . . . . NG/ML 20-100ADULT: IN SUFFICIENT . . . . . . . . . . . . . . NG/ML <20 SUBOP TIMAL . . . . . . . . . . . . . . . NG/ML 20-29 OPT IMAL . . . . . . . . . . . . . . . . . NG/ML 30-100 UN LESS OTHERWISE INDIC ATED, ALL TESTING PERFORM ED ATCLINICAL PATH OLOGY LABORATORIES, [facility]. [address] [place] [id number] LABORATORY DIRE CTOR: Kulwinder FLYNN CLIA NUMBER [id number] CAP ACCREDITATION N O. [id number] CBC W/AUTO DIFF WITH [id number] 05:58:01 Test Item Value Reference Range Interpretation Comments WBC (test code = 6.0 K/UL 3.5-11.0 1001) RBC (test code = 4.68 M/UL 3.80-5.40 1002) HEMOGLOBIN (test code 14.4 G/DL 11.5-15.5 = 1003) HEMATOCRIT (test code 43.6 % 34.0-45.0 = 1004) MCV (test code = 93.2 fL 80.0-99.0 1005) MCH (test code = 30.8 PG 25.0-33.0 1006) MCHC (test code = 33.0 G/DL 31.0-36.0 1007) RDW (test code = 13.7 % 11.5-15.0 1038) NEUTROPHILS (test 68.9 % code = 1008) LYMPHOCYTES (test 21.5 % code = 1010) MONOCYTES (test code 7.6 % = 1011) EOSINOPHILS (test 1.0 % code = 1012) BASOPHILS (test code 0.7 % = 1013) IMMATURE GRANULOCYTES 0.3 % (test code = 1036) NUCLEATED RBCS (test 0.0 /100 WBC'S See_Comment [Aut omated code = 1065) message] The sy stem which generated this result transmitted reference range : 0.0. The refere nce range was not u sed to interpret th is result as normal/abnormal . PLATELET COUNT (test 210 K/UL 130-400 code = 1015) ABSOLUTE NEUTROPHILS 4.16 K/UL 1.50-7.50 (test code = 1066) ABSOLUTE LYMPHOCYTES 1.30 K/UL 1.00-4.00 (test code = 1067) ABSOLUTE MONOCYTES 0.46 K/UL 0.20-1.00 (test code = 1068) ABSOLUTE EOSINOPHILS 0.06 K/UL 0.00-0.50 (test code = 1040) ABSOLUTE BASOPHILS 0.04 K/UL 0.00-0.20 (test code = 1069) ABS IMMATURE 0.02 K/UL 0.00-0.10 GRANULOCYTES (test code = 1020) ABS NUCLEATED RBCS 0.00 K/UL 0.00-0.11 (test code = 58952)
[2023-03-18 18:20] LABS: Hematocrit 43.5 % (36.0-45.0); Lymphocytes % 18.3 % (15.3-44.8); MCV 94.1 fL (80-100); MPV 10.4 fL (7.6-11.3); RBC Red Blood Cell Count 4.63 M/uL (3.86-4.86)
[2023-03-18 18:32] LABS: Protime INR 1.01
[2023-03-18] MEDS ORDERED: ACETAMINOPHEN 325 MG TABLET ONE (18:48)
--- NOTE | 2023-03-18 19:04 | RAD REPORT ---
EXAM DESCRIPTION: CT - Head C Spine Mpr Wo Con - 03/18/2023 6:38 pm CLINICAL HISTORY: Syncope. Head and neck injury status post fall. Head and neck pain COMPARISON: 2019 TECHNIQUE: Computed axial tomography of the head and cervical spine was obtained. Sagittal and coronal reconstruction was performed. All CT scans are performed using dose optimization technique as appropriate and may include automated exposure control or mA/KV adjustment according to patient size. FINDINGS: An intracranial bleed is not seen. The ventricles are normal in caliber. Moderate low-density within periventricular, deep and subcortical white matter likely ischemic change s secondary to small vessel disease An extra-axial fluid collection is not noted. Fluid within the visualized sinuses and mastoids is not seen A cervical fracture is not visualized. No dislocation is noted. Large osteophyte C3-4 results in moderate central spinal stenosis Mild chronic anterior subluxation C2 on C3 and C4 on C5 IMPRESSION: No acute intracranial abnormality is seen. A cervical fracture is not visualized. If the patient continues to have symptoms to suggest intracranial /spinal cord pathology then MRI wou ld be recommended
--- NOTE | 2023-03-18 19:09 | RAD REPORT ---
EXAM DESCRIPTION: Gabriele Single View03/18/2023 6:26 pm CLINICAL HISTORY: Syncope COMPARISON: 2019 FINDINGS: The lungs appear clear of acute infiltrate. The heart is moderately enlarged. A hiatal he rnia is suspected IMPRESSION: No acute abnormalities displayed
--- NOTE | 2023-03-18 19:16 | EDPHYS ---
Physician Documentation [facility] Name: Meera Welsl Age: 87 yrs Sex: Female : 1935 Arrival Date: 03/18/2023 Time: 17:30 Bed 3 Private MD: ED Physician Clement Ramey HPI: 03/18 17:37 This 87 yrs old Female presents to ER via Unassigned with complaints of syncope. ms3 17:37 87-year-old female with past medical history of hypertension and hypothyroidism ms3 presents via [facility] after syncopal episode at [facility]. EMS states patient was unresponsive for 1 minute. Patient's vital signs stable during transport. EMS notes patient was diaphoretic and pale on their arrival. Patient denies chest pain, shortness of breath, nausea, vomiting. Patient states she was waiting in line to check out at [facility] when she began to fade out and syncopized and fell.. Historical: - Allergies: 18:09 No Known Allergies; cm10 - PMHx: 17:50 Hypertension; Hypothyroidism; cm10 - Immunization history:: Adult Immunizations up to date. - Social history:: Smoking status: Patient denies any tobacco usage or history of. - Coronavirus screen:: The patient has NOT traveled to [place] in the past 14 days. ROS: 17:37 Constitutional: Negative for fever, and chills. Neck: Negative for injury, pain, and ms3 swelling. 17:37 Cardiovascular: Negative for chest pain, and palpitations. Respiratory: Negative for shortness of breath, cough, wheezing, and pleuritic chest pain, MS/Extremity: Negative for injury and deformity, Skin: Negative for injury, rash, and discoloration. 17:37 Cardiovascular: 17:37 Neuro: Positive for syncope. 17:37 All other systems are negative. Exam: 17:37 Constitutional: This is a well developed, well nourished patient who is awake, alert, ms3 and in no acute distress. Head/Face: Normocephalic, atraumatic. Neck: Trachea midline, no cervical lymphadenopathy. Supple, full range of motion without nuchal rigidity, or vertebral point tenderness. No Meningismus. Chest/axilla: Normal chest wall appearance and motion. Nontender with no deformity. Cardiovascular: Regular rate and rhythm with a normal S1 and S2. No gallops, murmurs, or rubs. Normal PMI, no JVD. No pulse deficits. Respiratory: Lungs have equal breath sounds bilaterally, clear to auscultation and percussion. No rales, rhonchi or wheezes noted. No increased work of breathing, no retractions or nasal flaring. Abdomen/GI: Soft, non-tender, with normal bowel sounds. No distension or tympany. No guarding or rebound. No evidence of tenderness throughout. Skin: Warm, dry with normal turgor. Normal color with no rashes, no lesions, and no evidence of cellulitis. MS/ Extremity: Pulses equal, no cyanosis. Neurovascular intact. Full, normal range of motion. 18:53 ECG was reviewed by the Attending Physician. ms3 Vital Signs: 18:00 BP 133 / 84; Pulse 62; Resp 18; Temp 98; Pulse Ox 100% ; Pain 3/10; ll1 19:15 BP 155 / 110; Pulse 85; Resp 16; Pulse Ox 96% on R/A; ll3 20:45 BP 135 / 97; Pulse 60; Resp 16; Pulse Ox 95% on R/A; ll3 21:41 BP 123 / 93; Pulse 79; Resp 18 S; Pulse Ox 98% on R/A; as6 18:00 Pain Scale: Adult ll1 MDM: 17:36 Patient medically screened. ms3 17:37 Differential Diagnosis: cardiac arrhythmia, idiopathic syncope, vasovagal episode, MS. ms3 20:46 Data reviewed: vital signs, nurses notes, and as a result, I will admit patient. ms3 Consideration of Admission/Observation Patient was admitted/placed on observation. Management of patient was discussed with the following: Hospitalist: LUISA Butterfield. Independent interpretation of the following test(s) in the Emergency Department nurse monitoring: rate is 62 beats/min, Rhythm is normal sinus rhythm, regular, with no ectopy, Interpretation: normal rate, normal rhythm. Historians other than the Patient: EMS: [facility]. Counseling: I had a detailed discussion with the patient and/or guardian regarding: the historical points, exam findings, and any diagnostic results supporting the discharge/admit diagnosis, lab results, radiology results, the need for further work-up and treatment in the hospital. ED course: Discussed with patient necessity for observation. Patient understands agrees with plan. All questions were answered. 03/18 17:37 Order name: Basic Metabolic Panel; Complete Time: 19:20 ms3 03/18 17:37 Order name: CBC with Diff; Complete Time: 18:29 ms3 03/18 17:37 Order name: Hepatic Function; Complete Time: 19:20 ms3 03/18 17:37 Order name: Magnesium; Complete Time: 19:20 ms3 03/18 17:37 Order name: Protime (+inr); Complete Time: 18:55 ms3 03/18 17:37 Order name: Ptt, Activated; Complete Time: 18:55 ms3 03/18 17:37 Order name: Troponin High Sensitivity; Complete Time: 19:20 ms3 03/18 17:37 Order name: Urinalysis w/ reflexes ms3 03/18 17:37 Order name: CT Head C Spine; Complete Time: 19:12 ms3 03/18 17:37 Order name: Chest Single View XRAY; Complete Time: 19:12 ms3 03/18 17:37 Order name: EKG; Complete Time: 17:38 ms3 03/18 17:37 Order name: Cardiac monitoring; Complete Time: 18:13 ms3 03/18 17:37 Order name: EKG - Nurse/Tech; Complete Time: 18:13 ms3 03/18 17:37 Order name: IV Saline Lock; Complete Time: 18:03 ms3 03/18 17:37 Order name: Labs collected and sent; Complete Time: 18:03 ms3 03/18 17:37 Order name: NPO; Complete Time: 18:03 ms3 03/18 17:37 Order name: O2 Per Protocol; Complete Time: 18:03 ms3 03/18 17:37 Order name: O2 Sat Monitoring; Complete Time: 18:03 ms3 03/18 18:21 Order name: Labs - recollect needed: recollect the chemistries hemolyzed; Complete eb Time: 18:51 EC:53 Rate is 62 beats/min. Rhythm is irregular. Left axis deviation noted. IN interval is ms3 normal. QRS interval is normal. Clinical impression: Sinus arrythmia. Interpreted by me. Reviewed by me. Administered Medications: 18:51 Drug: Acetaminophen PO 650 mg Route: PO; ll1 21:40 Follow up: Response: No adverse reaction as6 Disposition Summary: 03/18/23 19:15 Hospitalization Ordered Hospitalization Status: Observation ms3 Provider: Matt Becerra ms3 Location: Telemetry/MedSurg (observation) ms3 Condition: Stable ms3 Problem: new ms3 Symptoms: are unchanged ms3 Bed/Room Type: Standard ms3 Room Assignment: 207(03/18/23 20:17) cg Diagnosis - Syncope ms3 Discharge Instructions: - Discharge Summary Sheet ph Forms: - Work release form ph - SBAR form ph - Medication Reconciliation Form ms3 Signatures: Dispatcher [employer] EDJorge Card, LUISA-C DIRECTOR [employer]-Cla1 Lizzy Conde RN RN cg Jaylene Bedoya Lynsay RN RN ll1 Clement Ramey DO DO ms3 Hui See RN RN cm10 Luis Fortune RN as6 Corrections: (The following items were deleted from the chart) 20:17 19:15 ms3 cg
--- NOTE | 2023-03-18 19:16 | ER ---
Nurse's Notes [facility] Name: Meera Wells Age: 87 yrs Sex: Female : 1935 Arrival Date: 03/18/2023 Time: 17:30 Bed 3 Private MD: Diagnosis: Syncope Presentation: 03/18 18:00 Chief complaint: Patient states: LINDSAY with syncope event today. Coronavirus screen: ll1 Client denies travel out of the [place] in the last 14 days. At this time, the client does not indicate any symptoms associated with coronavirus-19. Ebola Screen: Patient denies travel to an Ebola-affected area in the 21 days before illness onset. Initial Sepsis Screen: Does the patient meet any 2 criteria? No. Patient's initial sepsis screen is negative. Does the patient have a suspected source of infection? No. Patient's initial sepsis screen is negative. Risk Assessment: Do you want to hurt yourself or someone else? Patient reports no desire to harm self or others. Onset of symptoms was March 16, 2023. 18:00 Method Of Arrival: EMS ll1 18:00 Acuity: TESSY 3 ll1 18:08 Chief complaint:. cm10 18:10 Care prior to arrival: IV initiated. 20 GA, in the left forearm. Activity prior to cm10 arrival: Syncope. 18:12 Chief complaint: EMS states: EMS reports that patient was grocery shopping and had a cm10 syncopal episode. Per EMS report, patient was lethargic and pale on scene. Patient now A\T\Ox4, skin warm and dry. Triage Assessment: 18:07 General: Appears in no apparent distress. comfortable, Behavior is calm, cooperative, cm10 appropriate for age. Pain: Denies pain. Historical: - Allergies: 18:09 No Known Allergies; cm10 - PMHx: 17:50 Hypertension; Hypothyroidism; cm10 - Immunization history:: Adult Immunizations up to date. - Social history:: Smoking status: Patient denies any tobacco usage or history of. - Coronavirus screen:: The patient has NOT traveled to [place] in the past 14 days. Screenin:13 [facility] ED Fall Risk Assessment (Adult) Score/Fall Risk Level 0 - 2 = Low Risk ll1 Oriented to surroundings, Maintained a safe environment, Educated pt \T\ family on fall prevention, incl call for assistance when getting out of bed, Hourly rounding (assess needs \T\ fall precautionary measures) done. Abuse screen: Denies threats or abuse. Nutritional screening: No deficits noted. Tuberculosis screening: No symptoms or risk factors identified. Assessment: 18:14 Reassessment: No changes from previously documented assessment. Patient and/or family ll1 updated on plan of care and expected duration. Pain level reassessed. Patient is alert, oriented x 3, equal unlabored respirations, skin warm/dry/pink. 18:33 Reassessment: No changes from previously documented assessment. To CT via stretcher. ll1 18:52 Reassessment: No changes from previously documented assessment. Patient and/or family ll1 updated on plan of care and expected duration. Pain level reassessed. 20:49 General: attempted to call report . as6 Vital Signs: 18:00 BP 133 / 84; Pulse 62; Resp 18; Temp 98; Pulse Ox 100% ; Pain 3/10; ll1 19:15 BP 155 / 110; Pulse 85; Resp 16; Pulse Ox 96% on R/A; ll3 20:45 BP 135 / 97; Pulse 60; Resp 16; Pulse Ox 95% on R/A; ll3 21:41 BP 123 / 93; Pulse 79; Resp 18 S; Pulse Ox 98% on R/A; as6 18:00 Pain Scale: Adult ll1 ED Course: 17:36 Patient arrived in ED. ms3 17:36 Clement Ramey DO is Attending Physician. ms3 17:50 Arm band placed on Patient placed in an exam room, on a stretcher. cm10 18:00 Jai Reyes, NADIRA is Primary Nurse. ll1 18:01 Triage completed. ll1 18:13 No provider procedures requiring assistance completed. Maintain EMS IV. Gauge \T\ site: ll1 20 G L FA. 18:14 Patient has correct armband on for positive identification. Bed in low position. Call ll1 light in reach. Client placed on continuous cardiac and pulse oximetry monitoring. NIBP monitoring applied. key ringer on. 18:28 Chest Single View XRAY In Process Unspecified. EDMS 18:39 CT Head C Spine In Process Unspecified. EDMS 19:15 Matt Becerra MD is Hospitalizing Provider. ms3 20:57 Primary Nurse role handed off by Jai Reyes, RN rv1 21:40 Patient admitted, IV remains in place. as6 Administered Medications: 18:51 Drug: Acetaminophen PO 650 mg Route: PO; ll1 21:40 Follow up: Response: No adverse reaction as6 Medication: 18:14 VIS not applicable for this client. ll1 Outcome: 19:15 Decision to Hospitalize by Provider. ms3 20:48 Condition: stable as6 20:48 Instructed on the need for admit. 21:40 Admitted to Med/surg accompanied by tech, via wheelchair, room 207, with chart, Report as6 called to Gini RN 21:41 Patient left the ED. as6 Signatures: Dispatcher [employer] EDMS Jai Reyes, RN RN ll1 Clement Ramey, DO ms3 Luis Fortune, RN RN as6 Karl Hua, NADIRA RN ll3 Katie Almanza rv1 Hui See, RN RN cm10 Corrections: (The following items were deleted from the chart) 18:13 18:00 BP 133 / 84; Resp 18bpm; Pulse Ox 100%; ll1 ll1
[2023-03-18 19:19] LABS: Albumin 3.4 g/dL (3.4-5.0); Bilirubin Direct 0.2 mg/dL (0-0.2); Bilirubin Indirect, Calculated 0.7 mg/dL (0.2-0.8); Bilirubin Total 0.9 mg/dL (0.2-1.0); Magnesium 2.2 mg/dL (1.6-2.4); Potassium 3.7 mEq/L (3.5-5.1); Protein, Total 6.9 g/dL (6.4-8.2); Troponin High Sensitivity 42.8 pg/mL (<58.9)
--- NOTE | 2023-03-18 19:59 | P.HP ---
Certification for Inpatient Patient admitted to: Observation With expected LOS: <2 Midnights Patient will require the following post-hospital care: None Practitioner: I am a practitioner with admitting privileges, knowledge of patient current condition, hospital course, and medical plan of care. Services: Services provided to patient in accordance with Admission requirements found in Title 42 Section 412.3 of the Code of Federal Regulations Patient History Date of Service: 03/18/23 Reason for admission: Syncope History of Present Illness: 87-year-old female with history of hypertension, hypothyroidism presents to the emergency department with chief complaint of syncope. She was at the grocery store today standing in line when she suddenly felt nauseous, hot all over and collapsed. She was reportedly unresponsive for approximately 1 minute. She has had similar episodes in the past but they have been a number of years ago and this "felt different". 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 Has never had a heart catheterization. EKG shows sinus rhythm without STEMI criteria initial high-sensitivity troponin 42.8. Vital signs have remained stable during her stay in the emergency department. CT head negative for acute findings. ED provider wishes to admit under observation for syncope. - Past Medical/Surgical History -: Hypertension -: Hypothyroidism -: Hysterectomy Psychosocial/ Personal History: Patient lives at home with family - Family History Family History: Reviewed- Non-Contributory - Social History Smoking Status: Never smoker Alcohol use: No CD- Drugs: No Caffeine use: Yes Place of Residence: Home Review of Systems 10-point ROS is otherwise unremarkable Neurological: Other (Syncope) Physical Examination - Physical Exam General: Alert, In no apparent distress, Oriented x3 HEENT: Atraumatic, PERRLA, Mucous membr. moist/pink, EOMI, Sclerae nonicteric Neck: Supple, 2+ carotid pulse no bruit, No LAD, Without JVD or thyroid abnormality Respiratory: Clear to auscultation bilaterally, Normal air movement Cardiovascular: No edema, Regular rate/rhythm, Normal S1 S2 Capillary refill: <2 Seconds Gastrointestinal: Normal bowel sounds, No tenderness Musculoskeletal: No tenderness Integumentary: No rashes Neurological: Normal gait, Normal speech, Normal strength at 5/5 x4 extr, Normal tone, Normal affect Lymphatics: No axilla or inguinal lymphadenopathy - Studies Laboratory Data (last 24 hrs) 03/18/23 18:50: Sodium 143, Potassium 3.7, BUN 17, Creatinine 0.92, Glucose 117 H, Magnesium 2.2, Total Bilirubin 0.9, AST 20, ALT 24, Alkaline Phosphatase 73 03/18/23 17:55: PT 11.1, INR 1.01, APTT 25.5 03/18/23 17:55: WBC 5.50, Hgb 14.5, Hct 43.5, Plt Count 173 Assessment and Plan - Plan Assessment: Syncope Hypertension Hypothyroidism Plan: Syncope Initial high-sensitivity troponin negative EKG without STEMI criteria. Will monitor on telemetry, trend troponins, obtain D-dimer and follow-up CT chest if indicated. We will also obtain orthostatic vital signs. Patient reports recent echocardiogram the past few weeks was normal. Hypertension Obtain and continue home medications Hypothyroidism Thyroid panel in the morning, continue medications. DVT PPX: Lovenox Code status: Full Discharge Plan: Home Plan to discharge in: 24 Hours - Advance Directives Does patient have a Living Will: No Does patient have a Durable POA for Healthcare: No - Code Status/Comfort Care Code Status Assessed: Yes (Full code) Critical Care: No Time Spent Managing Pts Care (In Minutes): 55
[2023-03-18] MEDS ORDERED: ACETAMINOPHEN 325 MG TABLET PO PRN (21:57)
[2023-03-18] MEDS ORDERED: ONDANSETRON 4 MG/2 ML VIAL IV PRN (21:57)
[2023-03-18 22:26] VITALS: BMI 22.1
[2023-03-18] MEDS: NA CHLORIDE 0.9% 1,000 ML IV SCH (22:44)
[2023-03-18] MEDS ORDERED: NA CHLORIDE 0.9% 500 ML IV ONE (22:51)
[2023-03-18 23:06] VITALS: O2SAT 98
--- NOTE | 2023-03-19 07:23 | RAD REPORT ---
EXAM DESCRIPTION: US - CP - 03/19/2023 7:03 am CLINICAL HISTORY: syncope COMPARISON: Head C Spine Mpr Wo Con dated 03/18/2023 TECHNIQUE: Real-time sonographic evaluation of both carotid systems was performed. Doppler interroga tion was performed with waveform tracing bilaterally. CAROTID STENOSIS REFERENCE USING NASCET CRITERIA: Mild - <50% stenosis. Moderate - 50-69% stenosis. Severe - 70-94% stenosis. Near occlusion - 95-99% stenosis. Occluded - 100% stenosis. FINDINGS: Normal high resistance waveforms are noted in both external carotid arteries. The common c arotid arteries and internal carotid arteries show normal low resistance waveforms. Hard plaque present at both of the carotid bifurcations and particularly the carotid bulbs. Peak syst olic and end diastolic velocity values and the ICA/CCA ratios are in the non-hemodynamically signific ant range. Antegrade flow seen in both vertebral arteries. IMPRESSION: No evidence of a hemodynamically significant stenosis. Atherosclerotic plaque present.
--- NOTE | 2023-03-19 07:45 | RAD REPORT ---
EXAM DESCRIPTION: US - Extrem Venous W Compress Alexys - 03/19/2023 7:39 am CLINICAL HISTORY: elevated ddimer COMPARISON: No comparisons TECHNIQUE: Real-time sonographic evaluation of the lower extremity deep venous systems was performed using color Doppler, grayscale, and compression. FINDINGS: Bilateral lower extremities. Normal compressibility, flow augmentation, phasic flow and spontaneous flow is identified in both the left and right lower extremity deep venous systems. No intraluminal filling defects seen. IMPRESSION: No DVT in either lower extremity.
[2023-03-19 07:54] LABS: Urine Bacteria <20 /HPF (<20); Urine Bilirubin NEGATIVE (Negative); Urine Blood Negative (Negative); Urine Clarity Clear (Clear); Urine Color Light-Yellow (Yellow); Urine Glucose NEGATIVE (Negative); Urine Mucus Slight /HPF (None Seen); Urine Protein NEGATIVE (Negative); Urine RBC <5 /HPF (None Seen); Urine Urobilinogen Normal (Normal); Urine pH 6.5 (5.0-7.0)
[2023-03-19] MEDS ORDERED: ASPIRIN EC 81 MG TAB PO SCH (09:00)
[2023-03-19] MEDS ORDERED: ENOXAPARIN 40 MG/0.4 ML SQ SCH (09:00)
[2023-03-19] MEDS ORDERED: POTASSIUM 25 MEQ EFFERV TAB PO ONE (09:00)
[2023-03-19 09:10] LABS: Hematocrit 40.3 % (36.0-45.0); Lymphocytes % 21.1 % (15.3-44.8); MCV 94.3 fL (80-100); MPV 10.5 fL (7.6-11.3); RBC Red Blood Cell Count 4.28 M/uL (3.86-4.86)
[2023-03-19 09:37] LABS: Potassium 3.2 mEq/L (3.5-5.1); Thyroid Stimulating Hormone 0.156 uIU/mL (0.358-3.740); Troponin High Sensitivity 38.8 pg/mL (<58.9)
[2023-03-19] MEDS: NA CHLORIDE 0.9% 1,000 ML IV SCH (11:17)
--- NOTE | 2023-03-19 11:20 | CON ---
Date of Consultation: 03/19/2023 She is 87, was admitted by Dr. Becerra on 03/18/2023 for syncope. I saw the patient on 03/19/2023. History Of Present Illness: Ms. Wells is an 87-year-old, very healthy woman overall. Has a history of hypertension and hypothyroidism. She sees Dr. Daly for her primary care. She used to see Dr. Juan santo at [facility] from a cardiac standpoint and has had some negative cardiac workup, but it has bee n a few years. Comes in with a syncopal episode that occurred while she is at the [facility]. She got very diaphoretic before that happen. Denied any chest pain, nausea, vomiting. Denied any PND, orth opnea, pedal edema. Denied any palpitations, fever, or chills. When she came to the emergency room, she was found to be hypertensive at 183/88. Her BNP was just 51,000. Chest x-ray is negative. Maxx ous Doppler is negative. EKG is negative. Carotid is negative. She is feeling better. She is stil l orthostatic on and off. Past Medical History: As stated above includes hypertension, hypothyroidism. Allergies: NONE. Medications: At home include losartan HCT and hydrochlorothiazide. Social History: Negative. Family History: Negative. Review of Systems: Negative. Physical Examination: General: Very pleasant. Vital Signs: Blood pressure was 183/88. HEENT: Negative. Neck: Supple with no bruit. She had a sinus rhythm. Chest: Clear. Cardiac: Revealed regular rhythm and rate with a 2/6 systolic ejection murmur at the third intercost al space radiating to the carotid. S4 gallops. Abdomen: Benign. Extremities: Revealed no clubbing, cyanosis, or edema. Diagnostic Data: As stated above. Impression And Plan: 1.Syncope, most likely orthostatic secondary to losartan and hydrochlorothiazide with other medicati ons, I am not so sure what they are. We will try to get them from someone else. 2.Aortic stenosis murmur. 3.Hypothyroidism. We would definitely continue the thyroid and continue her losartan with hydrochlo rothiazide. I am very comfortable with her going home today or tomorrow. I will get her set up in t he office to have an outpatient echocardiogram and an event monitor. NB/MODL Voice ID: [id number] Report ID: [id number]
[2023-03-19 12:25] VITALS: BP 148/73; TEMP 97.7
--- NOTE | 2023-03-19 15:20 | P.DS ---
Admission Date: 03/18/23 Discharge Date: 03/19/23 Disposition: ROUTINE DISCHARGE Discharge Condition: GOOD Reason for Admission: Syncope Consultations: 1. 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 Meera Wells is a pleasant 87 year old female with a past medical history significant for hypertension and hypothyroidism who was admitted to the [facility] on 03/18/2023 for syncope. She was admitted to the Medicine service. Upon further evaluation, she was found to be orthostatic. Her troponin trend was 42.8 -> 40.8 -> 38.8. Her chest x-ray revealed, "no acute abnormalities displayed." Her CT head/cervical spine revealed, "no acute intracranial abnormality is seen. A cervical fracture is not visualized." Her carotid artery ultrasound revealed, "no evidence of a hemodynamically significant stenosis. Atherosclerotic plaque present." Her d- dimer returned elevated at 5144. Her bilateral lower extremity Doppler revealed, "no DVT in either lower extremity." Her CT chest angiogram revealed, "borderline cardiomegaly with no aortic dissection or aneurysm. No pulmonary embolus. Mode rate hiatal hernia with no pneumonia." She was treated with IV fluids and, over the course of her hospitalization, her symptoms improved significantly. This afternoon, she was able to ambulate with nursing staff, without any symptoms. Cardiology was consulted and she was evaluated by Dr. Magaña. From a cardiac standpoint, he has cleared her for discharge with outpatient follow-up. On 03/19/2023, she was seen on rounds and deemed medically stable for discharge. She was discharged with instructions to schedule follow-up appointments with her PCP, with Cardiology (Dr. Magaña), and with Neurology (Dr. Powell). She was advised to discontinue her home losartanhydrochlorothiazide. She was provided a prescription for amlodipine. She was given the opportunity to ask questions and reported no further questions. Furthermore, all questions were answered to the best of my ability. A copy of this discharge summary will be sent to the above providers to facilitate continuity of care. Today, I personally spent 25 minutes on her case, of which greater than 50% of the time was spent in patient education, counseling, and coordination of care as described above. Vital Signs/Physical Exam: Temp Pulse Resp BP Pulse Ox 97.7 F 62 16 148/73 H 96 03/19/23 12:00 03/19/23 12:00 03/19/23 12:00 03/19/23 12:00 03/19/23 12:00 General: Alert, In no apparent distress, Oriented x3 HEENT: Atraumatic, Sclerae nonicteric Neck: JVD not distended Respiratory: Clear to auscultation bilaterally, Normal air movement Cardiovascular: No edema, Regular rate/rhythm, Normal S1 S2, No gallops, No rubs, Systolic murmur Gastrointestinal: Normal bowel sounds, Soft and benign, Non-distended, No tenderness, No rebound, No guarding Musculoskeletal: No clubbing Integumentary: No rashes Neurological: Normal speech, Normal strength at 5/5 x4 extr, Normal tone, Sensation intact, Cranial nerves 3-12 intact, Normal affect Laboratory Data at Discharge: WBC 4.90 thou/uL (4.3-10.9) 03/19/23 08:22 Hgb 13.4 g/dL (12.0-15.0) 03/19/23 08:22 Hct 40.3 % (36.0-45.0) 03/19/23 08:22 Plt Count 145 thou/uL (152-406) L 03/19/23 08:22 PT 11.1 SECONDS (9.5-12.5) 03/18/23 17:55 INR 1.01 03/18/23 17:55 APTT 25.5 SECONDS (24.3-36.9) 03/18/23 17:55 Sodium 139 mEq/L (136-145) 03/19/23 08:22 Potassium 3.2 mEq/L (3.5-5.1) L D 03/19/23 08:22 BUN 16 mg/dL (7-18) 03/19/23 08:22 Creatinine 0.70 mg/dL (0.55-1.02) 03/19/23 08:22 Glucose 98 mg/dL (74-106) 03/19/23 08:22 Magnesium 2.2 mg/dL (1.6-2.4) 03/18/23 18:50 Total Bilirubin 0.9 mg/dL (0.2-1.0) 03/18/23 18:50 AST 20 U/L (15-37) 03/18/23 18:50 ALT 24 U/L (13-56) 03/18/23 18:50 Alkaline Phosphatase 73 U/L (45-117) 03/18/23 18:50 Home Medications: Latanoprost [Xalatan] 2.5 ml OP BEDTIME 03/18/23 Levothyroxine Sodium 100 mg PO DAILY 03/18/23 Amlodipine [Norvasc*] 5 mg PO DAILY #30 tab 03/19/23 Diclofenac Na [Voltaren D.r*] 50 mg PO DAILY 03/19/23 Tizanidine [Zanaflex*] 1 tab PO DAILY 03/19/23 New Medications: Amlodipine [Norvasc*] 5 mg PO DAILY #30 tab Physician Discharge Instructions: 1. Please call and schedule a follow-up appointment with your PCP in 3-5 days - Your thyroid levels were slightly abnormal. Please have your levels rechecked with your PCP - You have a hernia in your abdomen called a "hiatal hernia." Please discuss with your PCP 2. Please call and schedule a follow-up appointment with Cardiology (Dr. Magaña) in 3-5 days 3. Please call and schedule a follow-up appointment with Neurology (Dr. Powell) in 3-5 days - There was degenerative changes in your neck with narrowing in your spine - please discuss with Dr. Powell - Please discontinue your losartan-hydrochlorothiazide - We have started you on amlodipine 5 mg daily for your blood pressure - Please check your blood pressure twice per day and keep in in a journal. Please bring this journal to your PCP to re-evaluate your blood pressure meds. Diet: AHA Activity: Ad maki Followup: Emir Magaña MD [ACTIVE - CAN ADMIT] - Russ Powell MD [ASSOCIATE-ACTIVE - CAN ADMIT] - Unknown,U [Primary Care Provider] - Time spent managing pt's care (in minutes): 25
[2023-03-19] MEDS ORDERED: AMLODIPINE 5 MG TAB PO SCH (16:00)
--- NOTE | 2023-03-20 19:46 | RAD REPORT ---
EXAM DESCRIPTION: CT - Chest For Pe Angio - 03/19/2023 6:14 am CLINICAL HISTORY: Syncope, Elevated DDimer COMPARISON: None. TECHNIQUE: CT CHEST ANGIOGRAPHY WITH IV CONTRAST on 03/19/2023 3:18 AM CDT. MIPS reconstructions were generated. This exam was performed according to our departmental dose-optimization program, which includes autom ated exposure control, adjustment of the mA and/or kV according to patient size and/or use of iterati ve reconstruction technique. MIP images were generated. FINDINGS: Thoracic aorta is normal in course and caliber without aneurysm or dissection. Pulmonary a rteries are adequately opacified without acute or chronic filling defects. The heart is borderline in size. There is no pericardial effusion. Intrathoracic lymph nodes are not enlarged. There is no pleural effusion, pleural thickening or pneumothorax. Central airways are patent. There i s mild bibasilar atelectasis and scarring. There is a moderate to large hiatal hernia. There are no acute osseous findings. No suspicious bony lesions. IMPRESSION: And borderline cardiomegaly with no aortic dissection or aneurysm. No pulmonary embolus. Moderate hiatal hernia with no pneumonia. Electronically signed by: Elver Gloria MD 03/19/2023 5:55 AM CDT Due to temporary technical issues with the PACS/Fluency reporting system, reports are being signed by the in house radiologists without review as a courtesy to insure prompt reporting. The interpreting radiologist is fully responsible for the content of the report.
--- NOTE | 2023-03-21 12:10 | EKG ---
Test Date: 2023-03-18 Test Time: 18:09:34 Sap Abap Developer: LURDES MEASUREMENT RESULTS: Intervals: Rate: 62 MN: 202 QRSD: 118 QT: 400 QTc: 406 [place]: P: 70 MN: 202 QRS: -73 T: 13 INTERPRETIVE STATEMENTS: Sinus rhythm with marked sinus arrhythmia Left anterior fascicular block Left ventricular hypertrophy with QRS widening Cannot rule out Septal infarct, age undetermined Abnormal ECG No previous ECG available for comparison Electronically Signed On 03-21-23 12:01:24 CDT by Emir Magaña
== END 2023-03-19 16:19 | disposition home or self-care (01) ==
LOC: ER 17:30 → ERHOLD 19:51 → 2ND 20:28
PROVIDERS: ADMIT Internal Medicine; ATTEND Internal Medicine
DX: R55 Syncope and collapse (principal); I10 Essential (primary) hypertension; E03.9 Hypothyroidism, unspecified; I35.0 Nonrheumatic aortic (valve) stenosis; E87.6 Hypokalemia; K44.9 Diaphragmatic hernia without obstruction or gangrene; M25.78 Osteophyte, vertebrae; M48.02 Spinal stenosis, cervical region
CPT/HCPCS: 93005; 85025 ×2; 81001; 80048 ×2; 36415; 83735; 85610; 85379; 80076; 85730; 84443; 84484 ×3; 84439; 70450; 72125; 71275; 71045; 93880; 93970; 99285; Q9967; J1650; J7030 ×2; G0378 ×3